=== PATIENT | male | born 1990 | race Caucasian/White ===

== ENCOUNTER 2020-05-05 03:31 | Inpatient (IN) | payer MEDICAID ==
[~2020-05-05] VITALS: Ht 167.6 cm; Wt 90.7 kg
[2020-05-05] MEDS ORDERED: SODIUM CHLORIDE 0.9% 1,000 ML IV ONE (04:13)
[2020-05-05] MEDS ORDERED: ONDANSETRON HCL 4MG/2ML INJ IV STA (04:13)
[2020-05-05 04:31] LABS: BASOPHILS % 1.4 % (0.0-2.0); EOSINOPHILS % 0.3 % (0.0-5.0); HEMATOCRIT. 49.5 % (42.0-52.0); HEMOGLOBIN. 17.2 g/dL (14.0-18.0); LYMPHOCYTES % 25.6 % (20.0-50.0); MEAN CORPUSCULAR HEMOGLOBIN 32.2 pg (28.0-32.0); MEAN CORPUSCULAR VOLUME 92.4 fL (80.0-94.0); MEAN PLATELET VOLUME 7.8 fl (7.4-10.4); NEUTROPHILS % 63.7 % (40.0-76.0); PLATELET 57 x1000/uL (130-400); RED BLOOD CELL COUNT 5.35 mill/uL (4.7-6.1); RED CELL DISTRIBUTION WIDTH 15.2 % (11.6-14.6)
[2020-05-05 04:39] LABS: CHLORIDE 103 mEq/L (98-107)
[2020-05-05 04:50] LABS: *BARBITURATES SCREEN URINE NEGATIVE (NEGATIVE); CANNABINOID URINE SCREEN NEGATIVE (NEGATIVE); METHADONE URINE SCREEN NEGATIVE (NEGATIVE); OPIATES URINE SCREEN NEGATIVE (NEGATIVE); PHENCYCLIDINE URINE SCREEN NEGATIVE (NEGATIVE)
[2020-05-05 04:51] LABS: *AMPHETAMINES SCREEN URINE NEGATIVE (NEGATIVE); *BENZODIAZEPINES SCREEN URINE NEGATIVE (NEGATIVE); *COCAINE SCREEN URINE NEGATIVE (NEGATIVE)
[2020-05-05 05:08] LABS: ETHANOL BLOOD 411 mg/dL
[2020-05-05] MEDS ORDERED: SODIUM CHLORIDE 0.9% 1,000 ML IV NR (06:00)
[2020-05-05] MEDS ORDERED: SODIUM CHLORIDE 0.9% 1,000 ML IV SCH (08:37)
[2020-05-05] MEDS ORDERED: CLONIDINE 0.1MG TABLET PO PRN (08:45)
[2020-05-05] MEDS ORDERED: MORPHINE SULFATE 2 MG/ML CPJ (NOT FOR IM USE) IV PRN ×2 (08:45→09:00)
[2020-05-05] MEDS ORDERED: MVI, ADULT NO.1 10 ML, FOLIC ACID 1 MG, THIAMINE HCL 100 MG in SODIUM CHLORIDE 0.9% 1,0... IV SCH ×8 (08:45→09:00)
[2020-05-05] MEDS ORDERED: ONDANSETRON HCL 4MG/2ML INJ IV PRN (08:45)
[2020-05-05] MEDS ORDERED: DIPHENHYDRAMINE 50MG/ML VIAL IV PRN ×2 (08:45→09:00)
[2020-05-05 09:47] VITALS: BP 120/69
[2020-05-05] MEDS: ONDANSETRON HCL 4MG/2ML INJ IV PRN ×2 (10:21→22:33)
[2020-05-05 10:30] VITALS: BP 125/64
[2020-05-05] MEDS ORDERED: CHLORDIAZEPOXIDE 25MG CAPSULE PO SCH (14:00)
[2020-05-05] MEDS: CHLORDIAZEPOXIDE 25MG CAPSULE PO SCH ×2 (15:02→21:05)
[2020-05-05 16:00] VITALS: BP 167/107
[2020-05-05 20:23] VITALS: BP 154/92
[2020-05-05] MEDS: LORAZEPAM 0.5MG TABLET PO PRN (22:33)
[2020-05-06 00:14] VITALS: BP 146/93
[2020-05-06] MEDS: SODIUM CHLORIDE 0.9% 1,000 ML IV SCH ×3 (02:17→12:29)
[2020-05-06 04:00] VITALS: BP 111/75
[2020-05-06] MEDS: CHLORDIAZEPOXIDE 25MG CAPSULE PO SCH ×3 (05:39→21:19)
[2020-05-06 08:00] VITALS: BP 148/98
[2020-05-06] MEDS: LORAZEPAM 0.5MG TABLET PO PRN (09:59)
[2020-05-06 12:00] VITALS: BP 147/97
[2020-05-06] MEDS: CLONIDINE 0.1MG TABLET PO PRN ×2 (12:27→21:27)
[2020-05-06 15:36] LABS: VITAMIN B12 SERUM 667 pg/mL (211-911)
[2020-05-06 16:00] VITALS: BP 130/97
[2020-05-06 18:28] LABS: BASOPHILS % 0.5 % (0.0-2.0); EOSINOPHILS % 0.6 % (0.0-5.0); HEMATOCRIT. 41.5 % (42.0-52.0); HEMOGLOBIN. 14.6 g/dL (14.0-18.0); LYMPHOCYTES % 14.3 % (20.0-50.0); MEAN CORPUSCULAR HEMOGLOBIN 32.7 pg (28.0-32.0); MEAN CORPUSCULAR VOLUME 93.4 fL (80.0-94.0); MEAN PLATELET VOLUME 8.8 fl (7.4-10.4); MONOCYTES % 10.3 % (2.0-8.0); NEUTROPHILS % 74.3 % (40.0-76.0); RED BLOOD CELL COUNT 4.45 mill/uL (4.7-6.1); RED CELL DISTRIBUTION WIDTH 15.1 % (11.6-14.6)
[2020-05-06 18:38] LABS: PLATELET 34 x1000/uL (130-400)
[2020-05-06 20:00] VITALS: BP_SYST 141; BP_SYST 99; BP_DIAS 101; BP_DIAS 58
[2020-05-07] VITALS: BP 122/90
[2020-05-07] MEDS: SODIUM CHLORIDE 0.9% 1,000 ML IV SCH ×2 (01:04→11:38)
[2020-05-07 04:10] VITALS: BP 133/95
[2020-05-07 08:24] VITALS: BP 105/62
[2020-05-07 08:37] LABS: CHLORIDE 103 mEq/L (98-107)
[2020-05-07 09:04] LABS: FOLATE HEMATOCRIT 42.6 % (37.5-51.0)
[2020-05-07] MEDS ORDERED: CHLO10CA71 PO (10:59)
[2020-05-07 12:14] VITALS: BP 130/85
[2020-05-07 12:23] LABS: BASOPHILS % 0.7 % (0.0-2.0); EOSINOPHILS % 1.9 % (0.0-5.0); HEMATOCRIT. 40.3 % (42.0-52.0); HEMOGLOBIN. 14.2 g/dL (14.0-18.0); LYMPHOCYTES % 16.8 % (20.0-50.0); MEAN CORPUSCULAR HEMOGLOBIN 32.9 pg (28.0-32.0); MEAN CORPUSCULAR VOLUME 93.3 fL (80.0-94.0); MEAN PLATELET VOLUME 8.8 fl (7.4-10.4); MONOCYTES % 10.2 % (2.0-8.0); NEUTROPHILS % 70.4 % (40.0-76.0); RED BLOOD CELL COUNT 4.32 mill/uL (4.7-6.1); RED CELL DISTRIBUTION WIDTH 15.3 % (11.6-14.6)
[2020-05-07 12:32] LABS: PLATELET 36 x1000/uL (130-400)
[2020-05-07 12:40] VITALS: BP 130/85
[2020-05-07 13:06] LABS: PLATELET ESTIMATE MARKEDLY DECREASED
[2020-05-07] MEDS: CHLORDIAZEPOXIDE 25MG CAPSULE PO SCH (14:11)
[2020-05-09 14:11] LABS: FOLATE RBC 819 ng/mL (>498)
== END 2020-05-07 16:18 | disposition home or self-care (01) | DRG 282 ==
LOC: ER 03:31 → 6WST 06:05 → EDBEDREQ 06:45 → ENRESERV 07:33 → CANRESERV 07:33 → ENRESERV 08:02 → ER 08:42
PROVIDERS: ADMIT Internal Medicine; ATTEND Internal Medicine
DX: K85.90 Acute pancreatitis without necrosis or infection, unspecified (principal); E72.20 Disorder of urea cycle metabolism, unspecified; F10.129 Alcohol abuse with intoxication, unspecified; E46 Unspecified protein-calorie malnutrition; D69.6 Thrombocytopenia, unspecified; Y90.9 Presence of alcohol in blood, level not specified; F41.9 Anxiety disorder, unspecified; K74.60 Unspecified cirrhosis of liver; Z90.49 Acquired absence of other specified parts of digestive tract; Z68.32 Body mass index [BMI] 32.0-32.9, adult
CPT/HCPCS: 36415; 71045; 74176; 80048; 80053; 80305; 80320; 82140; 82607; 82747; 83735; 83880; 84100; 84450; 84460; 84484; 85014; 85025; 93005; 93970; 96365; 99285; J2270; J2405; J3411; J3490; J7030; G0480